=== PATIENT | female | born 1995 | race Caucasian/White ===

== ENCOUNTER 2020-09-05 00:24 | Emergency (ER) | payer MEDICAID ==
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
== END 2020-09-05 02:20 | disposition home or self-care (01) ==
LOC: EDSEX 00:24 → FB.ED 00:24
DX: F69 Unspecified disorder of adult personality and behavior (principal); F17.210 Nicotine dependence, cigarettes, uncomplicated
CPT/HCPCS: 99284